=== PATIENT | female | born 1985 | race Hispanic/Latino ===

== ENCOUNTER → 2025-01-15 16:54 | Outpatient (ROUT) | payer MEDICAID, SELFPAY ==
[2025-01-15 18:13] LABS: Influenza A - CEPHEID Flu A NEGATIVE (NEGATIVE); Influenza B - CEPHEID Flu B NEGATIVE (NEGATIVE)
[2025-01-15 18:29] LABS: COVID-19 CEPHEID 4-PLEX PCR Negative (Negative)
== END ==
PROVIDERS: PCP Family Medicine; Visit Provider Registered Nurse
DX: R05.1 Acute cough (principal)
CPT/HCPCS: 87637